=== PATIENT | male | born 1950 | race Two or more races ===

== ENCOUNTER 2019-12-02 15:18 | Emergency (ER) | payer OTHER ==
[2019-12-02 15:25] VITALS: BP 228/108
[2019-12-02] MEDS ORDERED: MORPHINE SULFATE 10 MG/ML VIAL. IV ONE (15:45)
--- NOTE | 2019-12-02 15:48 | RAD ---
EXAM: Chest, single view. HISTORY: Shortness of breath. COMPARISON: None. FINDINGS: A frontal view of the chest is obtained. There is no infiltrate, pleural effusion or pneumothorax. There is a prominent cardiac silhouette. There is a cardiac pacemaker with leads in expected position. IMPRESSION: No acute pulmonary finding. Electronically signed by: Freya Presley MD (12/02/2019 3:46 PM) [id number]
[2019-12-02] MEDS ORDERED: CONTRAST GIVEN. MC PRN (16:15)
[2019-12-02] MEDS ORDERED: IOHEXOL 300 MG/ML 100ML VIAL. IV ONE (16:15)
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
== END 2019-12-02 17:24 | disposition home or self-care (01) ==
LOC: ER 15:18 → EEVIPCON 15:18 → ER 17:24
DX: S02.2XXA Fracture of nasal bones, initial encounter for closed fracture (principal); S09.8XXA Other specified injuries of head, initial encounter; R07.89 Other chest pain; M54.2 Cervicalgia; R51 Headache; Y08.89XA Assault by other specified means, initial encounter; Y93.39 Activity, other involving climbing, rappelling and jumping off; Y92.89 Other specified places as the place of occurrence of the external cause; Y99.8 Other external cause status
CPT/HCPCS: 70450; 70486; 71045; 71260; 72125; 74177; 96374; 99285; J2270; Q9967